=== PATIENT | female | born 1990 | race Caucasian/White ===

== ENCOUNTER 2018-11-15 04:15 | Inpatient (IN) | payer BC ==
[~2018-11-15] VITALS: Ht 172.7 cm; Wt 114.8 kg
[~2018-11-15 04:15] MED LIST: PREN-127 PO
[2018-11-15] MEDS ORDERED: LR(*) 1000 ML BAG 1,000 ML IV PRN (04:16)
[2018-11-15 05:54] LABS: PLATELET COUNT, AUTOMATED 273 K/uL (150-450)
[2018-11-15 06:58] VITALS: Ht 172.7 cm; Wt 114.8 kg
[2018-11-15] MEDS ORDERED: OXYTOCIN 30 UNIT/D5LR 500 ML 500 ML IV PRN (07:56)
[2018-11-15] MEDS ORDERED: FAMOTIDINE(*) 20MG/50ML PREMIX 50 ML IVPB PRN (07:56)
[2018-11-15] MEDS ORDERED: DLR(*) 1000 ML BAG 1,000 ML IV SCH (07:56)
[2018-11-15] MEDS ORDERED: METOCLOPRAMIDE 10 MG/2 ML SDV IVP PRN (08:00)
[2018-11-15] MEDS ORDERED: fentaNYL CITR 100 MCG/2 ML AMP IVP PRN (08:00)
[2018-11-15] MEDS ORDERED: ONDANSETRON 4 MG/2 ML VIAL IVP PRN (08:00)
[2018-11-15] MEDS ORDERED: FLUSH 10 ML SYR IVP PRN (08:00)
[2018-11-15] MEDS ORDERED: LIDOCAINE 1% LOCAL 300 MG/30ML INJ PRN (08:00)
[2018-11-15] MEDS ORDERED: cefOXitin/DEX(*) 2GM/50ML PREM 50 ML IVPB PRN (08:00)
[2018-11-15] MEDS ORDERED: LIDOCAINE/SOD BICARB 8.4% SYR SC PRN (08:00)
[2018-11-15] MEDS ORDERED: LIDO/EPI 2% MPF 1:200,000 20ML EPI PRN (09:10)
[2018-11-15] MEDS ORDERED: FENTANYL/ROPIVACAINE 100 ML BAG EPI PRN (09:10)
[2018-11-15] MEDS ORDERED: BUPIVACAINE 0.5% INJ 30ML VIAL EPI PRN (09:10)
[2018-11-15] MEDS ORDERED: fentaNYL CITR 100 MCG/2 ML AMP IT PRN (09:10)
[2018-11-15] MEDS ORDERED: LIDOCAINE/PF 2% 200MG/10ML AMP 200 MG/10 ML AMPUL EPI PRN (09:10)
[2018-11-15] MEDS ORDERED: BUPIVACAINE 0.25% MPF INJ EPI PRN ×2 (09:10→09:15)
[2018-11-15] MEDS ORDERED: ePHEDrine 25 MG/5 ML DISP.SYR IVP ONE (10:10)
[2018-11-15] MEDS ORDERED: LANOLIN OINT 7 GM TUBE TP PRN (11:15)
[2018-11-15] MEDS ORDERED: BENZOCAINE 20% 60 ML BTL TP PRN (11:15)
[2018-11-15] MEDS ORDERED: HYDROCORTISONE 2.5% CR 30GM TB PR PRN (11:15)
[2018-11-15] MEDS ORDERED: MAGNESIUM HYDROXIDE* 30ML UDCP PO PRN (11:15)
[2018-11-15] MEDS ORDERED: GLYCERIN/WITCH HAZEL LEAF 1 PK TP PRN (11:15)
[2018-11-15] MEDS ORDERED: ACETAMINOPHEN 325 MG TAB PO PRN (11:15)
--- NOTE | 2018-11-15 11:23 | OB Delivery Note ---
Delivery Note Vaginal Delivery Type: Spont. Vaginal Delivery Delivery Date: Nov 15, 2018 Delivery Time: 10:39 Estimated Gestational Age(wks): 39.2 Delivery Anesthesia: Local Sex: Male Weight (gms): 3450 Apgars: 1 Minute (8), 5 Minute (9) If Twins-Baby B Sex: Male Repair Needed: Laceration, 3rd Degree Estimated Blood Loss: 400 Delivery Complications: Precipitous Notes: Presented this morning at 0430 at 1 cm with painful contractions. Observed to change at 0630 to 1.5 cm and was then 4 cm at 0900. Moved rapidly to complete at 1019 and then involuntary pushing. Very strong and effective pushes. Local anesthetic for perineum administered. She continued to push effectively and strong and the perineum suddenly broke open to a third degree and in the BRIANDA position. Nuchal cord x 1 delivered through. Remainder of baby delivered without difficulty. Placenta delivered spontaneous and intact. Repair with 2-0 Vicryl through anal capsule and perineal body. 2-0 Chromic used to repair the vagina and right labia majora and the remainder as per a second degree laceration repair with excellent reapproximation of skin edges and hemostasis achieved. 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
--- NOTE | 2018-11-15 11:28 | History & Physical ---
History of Present Illness Age of Patient: 27 : 1 Para or TPAL: 0 EDC per LMP: Feb 13, 2018 Estimated Gestational Age: 39.2 Chief Complaint labor History of Present Illness Presents with report of painful contractions. 1 cm on admission. uncomplicated. Pt is Rh negative, GBS negative. Med Rec Home Meds Reported Medications Vits W-Ca,Fe,Fa(<1MG) ( VITAMINS) 1 Each Tablet, 1 EACH PO DAILY, TAB 10/31/18 Review of Systems All Systems Reviewed/Normal: Yes, Except as Noted Exam General Exam General Apperance: Alert/Awake/No Acute Distress Neuro: No Gross deficits Eyes: Normal Extraocular Movement & Vison Cardiovascular: Regular Rate and Rhythm Respiratory: No Respiratory Distress Musculoskeletal: No Weakness/Pain Psychological: Alert & Oriented X3, Appropriate Mood & Affect Cervical Dialation: 1 Cervical Effacement (%): 50 Station: -2 Presentation: Vertex Fetus Heart Tone Variabilty: Moderate FHT Category: I Medical Decision Making Data Points Result Diagram: 11/15/18 0512 11/15/18 05 VTE Prophylasis: Adult Pharmacological Contraindicati: Pt at Low Risk for VTE Mechanical Contraindications: Pt at Low Risk for VTE 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
[2018-11-15] MEDS ORDERED: LIDOCAINE 1% LOCAL 300 MG/30ML 30 ML ONE (12:15)
[2018-11-15 12:45] VITALS: BP 145/73
[2018-11-15] MEDS: HYDROmorphone HCL 2 MG TAB PO PRN ×3 (12:49→18:45)
[2018-11-15] MEDS ORDERED: IBUPROFEN 800 MG TAB PO SCH (14:00)
[2018-11-15 16:40] VITALS: BP 140/87
[2018-11-15 19:42] VITALS: BP 137/85
[2018-11-15] MEDS: IBUPROFEN 800 MG TAB PO SCH (19:46)
[2018-11-15] MEDS: DOCUSATE CALCIUM 240 MG CAP PO SCH (20:42)
[2018-11-16 00:43] VITALS: BP 132/90
[2018-11-16] MEDS: HYDROmorphone HCL 2 MG TAB PO PRN ×2 (01:06→10:04)
[2018-11-16 03:19] VITALS: BP 117/63
[2018-11-16] MEDS: IBUPROFEN 800 MG TAB PO SCH ×2 (03:21→11:47)
[2018-11-16] MEDS ORDERED: MEASLES,MUMP,RUBELLA VAC 0.5ML SUBQ ONE (09:00)
[2018-11-16] MEDS ORDERED: INFLUENZA VIRUS VAC 0.5ML SYR IM ONLY ONE (09:00)
[2018-11-16] MEDS ORDERED: DIPHTH/TETANUS/ACEL. PERTUSSIS IM ONLY ONE (09:00)
[2018-11-16 09:15] VITALS: BP 141/85
[2018-11-16] MEDS: DOCUSATE CALCIUM 240 MG CAP PO SCH (09:26)
[2018-11-16 11:50] VITALS: BP 136/91
--- NOTE | 2018-11-16 14:29 | OB/GYN Progress Note ---
OB Subjective Progress Notes Subjective Doing well. Wants to go home GI: NEG Nausea : Voiding Well Pain: Mild OB Objective Physical Exam Vital Signs Date Time Temp Pulse Resp B/P (MAP) Pulse Ox O2 Delivery O2 Flow Rate FiO2 11/16/18 03:19 80 16 117/63 (81) 93 Room Air 11/16/18 00:43 97.1 Intake and Output 11/16/18 07:00 Intake Total 1500 ml Balance 1500 ml IV Total 1500 ml # Voids 3 General Appearance: Alert/Awake/No Acute Distress Neurological: No Gross deficits Eyes: Normal Extraocular Movement & Vison Cardiovascular: Normal Rhythm & Peripheral Pulses, Regular Rate and Rhythm Respiratory: No Respiratory Distress, Clear to Auscultation Abdomen: Soft, Non-Tender, Non-Distended Psychological: Alert & Oriented X3, Appropriate Mood & Affect Result Diagram: 11/16/18 0635 11/15/18 0512 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
[2018-11-16] MEDS ORDERED: HYDR2TAB4 PO (14:33)
[2018-11-16] MEDS ORDERED: IBUP800T37 PO (14:33)
--- NOTE | 2018-11-16 14:38 | OB/GYN Discharge Summary ---
Discharge Summary Reason for Hosp/Final Diag: (1) 39 weeks gestation of Hospital Course & Plan: s/p ; 3rd degree laceration Lates Vital Signs Vital Signs Date Time Temp Pulse Resp B/P (MAP) Pulse Ox O2 Delivery O2 Flow Rate FiO2 11/16/18 03:19 80 16 117/63 (81) 93 Room Air 11/16/18 00:43 97.1 Weight (Pounds): 253 Result Diagram: 11/16/18 0635 11/15/18 0512 Condition: Improved Discharge: Home, Self Intermediate Meds Active Scripts Hydromorphone Hcl (HYDROMORPHONE HCL) 2 Mg Tablet, 2 MG PO Q6H PRN for PAIN, #14 TAB 0 Refills Prov:TALIA WEBSTER MD 11/16/18 Reported Medications Vits W-Ca,Fe,Fa(<1MG) ( VITAMINS) 1 Each Tablet, 1 EACH PO DAILY, TAB 10/31/18 Follow up Referrals: 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 Webster [phone] Follow up in: 6 wks PP or PO Discharge Diet: As Tolerates Discharge Activity: As Tolerates, No Heavy Lifting x 6 wks, No Heavy Lifting > 10lb, Pelvic Rest Copies to: TALIA WEBSTER MD ; TALIA WEBSTER MD Nov 16, 2018 14:38
== END 2018-11-16 17:15 | disposition home or self-care (01) | DRG 806 ==
LOC: OB 04:15
PROVIDERS: ADMIT Obstetrics & Gynecology; ATTEND Obstetrics & Gynecology
PROC: 10E0XZZ Delivery of Products of Conception, External Approach (ICD-10-PCS; principal; 2018-11-15)
PROC: 0KQM0ZZ Repair Perineum Muscle, Open Approach (ICD-10-PCS; 2018-11-15)
DX: O62.3 Precipitate labor (principal); O36.0130 Maternal care for anti-D [Rh] antibodies, third trimester, not applicable or unspecified; Z37.0 Single live birth; O70.20 Third degree perineal laceration during delivery, unspecified; O69.81X0 Labor and delivery complicated by cord around neck, without compression, not applicable or unspecified; Z3A.39 39 weeks gestation of pregnancy
CPT/HCPCS: 36415; 59025; 82040; 82247; 82310; 82374; 82435; 82565; 82570; 82947; 84075; 84112; 84132; 84155; 84156; 84295; 84450; 84460; 84520; 85025; 85027; 86850; 86900; 86901; J2001; J2405; J2590; J3010; J7120